=== PATIENT | male | born 1950 | race African-American/Black ===

== ENCOUNTER → 2022-03-29 | Day surgery (SDC) | payer MEDICAID ==
[~2022-03-29] VITALS: Ht 170.1 cm; Wt 58.3 kg
[~2022-03-29] MED LIST: CEREFOLIN CAPL1 EACH PO; LASIX20 MG PO; LIDOCAINE PAIN1 EACH T; LIPITOR10 MG PO; MOBIC15 MG PO; MOVE FREE ULTR1 EAC2 PO; MUCINEX ER600 MG PO; NATURE'S BLEND F1 MG PO; NORVASC5 MG PO; PEPCID20 MG PO; PERCOCET 10-321 EACH PO; VITAMIN B150 MG PO; ZOFRAN4 MG PO; [UNRECOGNIZED DRUG - REMARK] PO
[2022-03-29 07:24] VITALS: BP 139/85
[2022-03-29 08:24] VITALS: BP 111/64
[2022-03-29 08:39] VITALS: BP 143/85
[2022-03-29 08:54] VITALS: BP 147/103
== END | disposition home or self-care (01) ==
LOC: SDC 03-25 14:00
PROVIDERS: ATTEND Surgery
DX: Z12.11 Encounter for screening for malignant neoplasm of colon (principal); D12.0 Benign neoplasm of cecum; D12.2 Benign neoplasm of ascending colon; K57.30 Diverticulosis of large intestine without perforation or abscess without bleeding; I10 Essential (primary) hypertension; J44.9 Chronic obstructive pulmonary disease, unspecified; K21.9 Gastro-esophageal reflux disease without esophagitis; Z79.899 Other long term (current) drug therapy

== ENCOUNTER → 2022-09-03 | Outpatient (CLI) | payer MEDICAID | END | disposition home or self-care (01) | LOC: CT 14:00 | PROVIDERS: ATTEND Orthopaedic Surgery | DX: S72.21XA Displaced subtrochanteric fracture of right femur, initial encounter for closed fracture (principal); S42.201A Unspecified fracture of upper end of right humerus, initial encounter for closed fracture; X58.XXXA Exposure to other specified factors, initial encounter; Y93.89 Activity, other specified; Y92.89 Other specified places as the place of occurrence of the external cause; Y99.8 Other external cause status ==

== ENCOUNTER → 2022-09-25 | Day surgery (SDC) | payer MEDICAID ==
[~2022-09-25] VITALS: Ht 182.8 cm; Wt 69.9 kg
[2022-09-25 10:33] VITALS: BP 148/72
[2022-09-25 11:50] VITALS: BP 151/80
[2022-09-25 12:05] VITALS: BP 142/69
[2022-09-25 12:16] VITALS: BP 141/72
== END | disposition home or self-care (01) ==
LOC: SDC 09-20 12:30
PROVIDERS: ATTEND Ophthalmology
DX: H25.811 Combined forms of age-related cataract, right eye (principal); I10 Essential (primary) hypertension; J44.9 Chronic obstructive pulmonary disease, unspecified; K21.9 Gastro-esophageal reflux disease without esophagitis; Z79.899 Other long term (current) drug therapy

== ENCOUNTER 2023-06-19 10:08 | Emergency (ER) | payer MEDICAID ==
[~2023-06-19] VITALS: Ht 165.1 cm; Wt 67.1 kg
[~2023-06-19 10:08] MED LIST changes: +LATANOPROST2.5 ML OP; +OXYCODONE HCL20 M1 PO; +PROVENTIL HFA6.7 GM INH; +VITAMIN D350 MCG PO; +ZITHROMAX TRI-500 M1 PO
== END 2023-06-19 11:14 | disposition home or self-care (01) ==
LOC: ED 10:08
DX: S01.01XD Laceration without foreign body of scalp, subsequent encounter (principal); F17.200 Nicotine dependence, unspecified, uncomplicated; Z48.02 Encounter for removal of sutures; Z79.2 Long term (current) use of antibiotics; Z79.899 Other long term (current) drug therapy; Z98.890 Other specified postprocedural states; W19.XXXD Unspecified fall, subsequent encounter

== ENCOUNTER → 2023-08-27 | Outpatient (CLI) | payer MEDICAID | END | disposition home or self-care (01) | LOC: ORTHO 02:37 | PROVIDERS: ATTEND Orthopaedic Surgery | DX: M25.511 Pain in right shoulder (principal) ==

== ENCOUNTER 2024-01-29 10:02 | Inpatient (IN) | payer MEDICAID ==
[~2024-01-29] VITALS: Ht 175.2 cm; Wt 65.1 kg
[~2024-01-29 10:02] MED LIST changes: +CARVEDILOL6.25 MG PO; +CIPROFLOXACIN H10 ML OPH
[2024-01-29 10:13] VITALS: BP 114/68
[2024-01-29] MEDS ORDERED: SODIUM CHLORIDE 0.9% 1,000 ML IV SCH (10:30)
[2024-01-29 10:59] LABS: ACT PARTIAL THROMBO TIME 27.1 SECONDS (20.0-32.1)
[2024-01-29 11:17] LABS: ALKALINE PHOSPHATASE 140 U/L (46-116); BUN 12 mg/dl (9-23); CHLORIDE 100 mmol/L (98-107); CPK 34 U/L (34-171); LIPASE 32 U/L (12-53); SGPT/ALT 53 U/L (5-49); TOTAL PROTEIN 6.9 gm/dL (6.0-8.0)
[2024-01-29 11:27] LABS: BASO % 0.6 % (0.0-1.0); HEMATOCRIT 39.6 % (42.0-52.0); LYMPH # 0.6 10*3/uL (1.3-4.4); LYMPH % 12.2 % (27.0-41.0); MEAN CELL VOLUME 97.5 fl (80.0-94.0); MEAN CORPUSCULAR HGB 33.5 pg (27.0-31.0); MEAN CORPUSCULAR HGB CONC 34.3 g/dl (33.0-37.0); MEAN PLATELET VOLUME 8.5 fl (9.6-12.3); MONO # 0.6 10*3/uL (0.1-1.0); MONO % 12.4 % (3.0-9.0); NEUT # 3.7 10*3/uL (2.3-7.9); NEUT % 74.6 % (47.0-73.0); PLATELET COUNT AUTOMATED 217 10*3/uL (130-400); RED BLOOD COUNT 4.06 10*6/uL (4.50-5.90); RED CELL DISTRI WIDTH 12.5 % (0-14.5)
[2024-01-29] MEDS ORDERED: POTASSIUM CHLORIDE 20 MEQ TAB PO ONE (12:05)
[2024-01-29] MEDS ORDERED: Ceftriaxone Sodium 1 GM/10 ML SYR IV ONE (12:10)
[2024-01-29] MEDS ORDERED: Ondansetron Hydrochloride 4 MG/2 ML VIAL IV ONE (12:30)
[2024-01-29] MEDS ORDERED: POTASSIUM CHLORIDE IN WATER 100 ML IV SCH (14:00)
[2024-01-29] MEDS ORDERED: Thiamine 200 MG/2 ML VIAL IV ONE (14:05)
[2024-01-29] MEDS ORDERED: DIAZEPAM 10 MG/2 ML SYR IV ONE ×2 (14:05→17:25)
[2024-01-29] MEDS ORDERED: IOHEXOL 9 MG/ML (IODINE) ORAL SOLUTION PO ONE (14:25)
[2024-01-29 15:06] VITALS: BP 165/102
[2024-01-29] MEDS ORDERED: Promethazine Hydrochloride 25 MG/ML VIAL IM ONE (15:35)
[2024-01-29] MEDS ORDERED: IOHEXOL 300 MG/ML 100 ML VIAL IV ONE (16:00)
[2024-01-29] MEDS ORDERED: MULTIVITAMIN CONCENTRATE (IV) 10 ML,Thiamine 100 MG,FOLIC ACID 1 MG in SODIUM CHLORIDE ... IV ONE (17:10)
[2024-01-29] MEDS ORDERED: MORPHINE Sulfate 2 MG/ML SYR IV PRN (17:25)
[2024-01-29] MEDS ORDERED: Ondansetron Hydrochloride 4 MG/2 ML VIAL IV PRN (17:25)
[2024-01-29] MEDS ORDERED: ACETAMINOPHEN 650 MG SUPP R PRN (17:25)
[2024-01-29] MEDS ORDERED: Dicyclomine Hydrochloride 20 MG TAB PO PRN (17:30)
[2024-01-29] MEDS ORDERED: METHOCARBAMOL 750 MG TAB PO PRN (17:30)
[2024-01-29] MEDS ORDERED: SODIUM CHLORIDE 0.9% 1,000 ML IV ONE (17:30)
[2024-01-29] MEDS ORDERED: hydrOXYzine 50 MG CAP PO PRN (17:30)
[2024-01-29] MEDS ORDERED: MORPHINE Sulfate 2 MG/ML SYR IV ONE (17:30)
[2024-01-29 17:38] LABS: BILIRUBIN Negative (Negative); BLOOD 3+ (Negative); CLARITY Clear (Clear); COLOR Orange (Yellow); GLUCOSE Negative (Negative); KETONE Negative (Negative); LEUKO ESTERASE Negative (Negative); NITRITE Negative (Negative); PH 5.5 (4.5-8.0); SPECIFIC GRAVITY >= 1.030 (1.001-1.030)
[2024-01-29 17:58] LABS: BACTERIA 1+; FINE GRANULAR CAST 0-2; MUCOUS 1+; RBC 41-50 rbc/hpf (0-2); WBC 0-2 wbc/hpf (0-5)
[2024-01-29] MEDS ORDERED: Piperacillin Sodium/Tazobact 50 ML IV SCH (18:00)
[2024-01-29] MEDS ORDERED: DIAZEPAM 10 MG/2 ML SYR IV SCH (18:00)
[2024-01-29 18:10] VITALS: BP 167/120
[2024-01-29 19:15] VITALS: BP 167/100
[2024-01-29] MEDS ORDERED: Labetalol Hydrochloride 20 MG/4 ML SYR IV ONE (19:35)
[2024-01-29 20:15] VITALS: BP 198/107
[2024-01-29] MEDS ORDERED: POTASSIUM CHLORIDE IN WATER 100 ML IV ONE (20:58)
[2024-01-30] VITALS: BP 178/93
[2024-01-30 04:00] VITALS: BP 163/78
[2024-01-30] MEDS ORDERED: Pantoprazole Sodium 40 MG VIAL IV SCH (06:00)
[2024-01-30 06:48] LABS: BASO % 0.5 % (0.0-1.0); EOS # 0.1 10*3/uL (0.0-0.4); EOS % 1.9 % (1.0-4.0); HEMATOCRIT 37.7 % (42.0-52.0); LYMPH # 0.5 10*3/uL (1.3-4.4); MEAN CELL VOLUME 99.7 fl (80.0-94.0); MEAN CORPUSCULAR HGB 34.1 pg (27.0-31.0); MEAN CORPUSCULAR HGB CONC 34.2 g/dl (33.0-37.0); MEAN PLATELET VOLUME 8.9 fl (9.6-12.3); MONO # 0.5 10*3/uL (0.1-1.0); MONO % 10.6 % (3.0-9.0); NEUT # 3.2 10*3/uL (2.3-7.9); PLATELET COUNT AUTOMATED 152 10*3/uL (130-400); RED BLOOD COUNT 3.78 10*6/uL (4.50-5.90); RED CELL DISTRI WIDTH 12.7 % (0-14.5); WHITE BLOOD COUNT 4.2 10*3/uL (4.8-10.8)
[2024-01-30 07:14] LABS: ALKALINE PHOSPHATASE 124 U/L (46-116); BUN 6 mg/dl (9-23); CHLORIDE 108 mmol/L (98-107); POTASSIUM 3.1 mmol/L (3.4-5.1); SGPT/ALT 37 U/L (5-49)
[2024-01-30] MEDS ORDERED: SODIUM CHLORIDE 0.9% 1,000 ML IV ONE (08:20)
[2024-01-30] MEDS ORDERED: POTASSIUM CHLORIDE IN WATER 100 ML IV SCH (09:00)
[2024-01-30 09:30] VITALS: BP 180/70
[2024-01-30] MEDS ORDERED: Thiamine 200 MG/2 ML VIAL IV SCH (10:00)
[2024-01-30] MEDS ORDERED: Enoxaparin Sodium 40 MG/0.4 ML SYR SC SCH (10:00)
[2024-01-30] MEDS ORDERED: CARVEDILOL 6.25 MG TAB PO SCH (11:15)
[2024-01-30 12:00] VITALS: BP 150/85
[2024-01-30 16:17] VITALS: BP 145/85
[2024-01-30 20:00] VITALS: BP 169/84
[2024-01-30] MEDS ORDERED: OXYCODONE HCL 20 MG PO SCH (22:00)
[2024-01-30] MEDS ORDERED: METRONIDAZOLE 500 MG TAB PO SCH (22:00)
[2024-01-30] MEDS ORDERED: Ciprofloxacin Hydrochloride 500 MG TAB PO SCH (22:00)
[2024-01-31] VITALS (7 sets, daily range): BP systolic 136–190; BP diastolic 70–100
[2024-01-31 06:42] LABS: BASO % 0.6 % (0.0-1.0); EOS # 0.2 10*3/uL (0.0-0.4); EOS % 6.5 % (1.0-4.0); HEMATOCRIT 35.8 % (42.0-52.0); LYMPH # 0.9 10*3/uL (1.3-4.4); LYMPH % 27.5 % (27.0-41.0); MEAN CELL VOLUME 99.4 fl (80.0-94.0); MEAN CORPUSCULAR HGB 33.9 pg (27.0-31.0); MEAN CORPUSCULAR HGB CONC 34.1 g/dl (33.0-37.0); MEAN PLATELET VOLUME 9.1 fl (9.6-12.3); MONO # 0.4 10*3/uL (0.1-1.0); NEUT # 1.7 10*3/uL (2.3-7.9); NEUT % 52.1 % (47.0-73.0); PLATELET COUNT AUTOMATED 140 10*3/uL (130-400); RED CELL DISTRI WIDTH 12.4 % (0-14.5); WHITE BLOOD COUNT 3.2 10*3/uL (4.8-10.8)
[2024-01-31 07:05] LABS: ALKALINE PHOSPHATASE 114 U/L (46-116); CHLORIDE 103 mmol/L (98-107); POTASSIUM 3.3 mmol/L (3.4-5.1); SGPT/ALT 28 U/L (5-49); TOTAL PROTEIN 5.8 gm/dL (6.0-8.0)
[2024-01-31 07:06] LABS: BUN < 5 mg/dl (9-23)
[2024-01-31] MEDS ORDERED: POTASSIUM CHLORIDE 20 MEQ TAB PO ONE ×2 (07:45→09:45)
[2024-01-31] MEDS ORDERED: Labetalol Hydrochloride 20 MG/4 ML SYR IV ONE (08:05)
[2024-01-31] MEDS ORDERED: CARVEDILOL 12.5 MG TAB PO SCH (22:00)
[2024-02-01 05:02] LABS: ALKALINE PHOSPHATASE 100 U/L (46-116); CHLORIDE 103 mmol/L (98-107); POTASSIUM 3.4 mmol/L (3.4-5.1); SGPT/ALT 23 U/L (5-49); TOTAL PROTEIN 5.8 gm/dL (6.0-8.0)
[2024-02-01 05:05] LABS: BUN < 5 mg/dl (9-23)
[2024-02-01 06:25] LABS: BASO % 0.6 % (0.0-1.0); EOS # 0.2 10*3/uL (0.0-0.4); EOS % 6.5 % (1.0-4.0); LYMPH # 0.8 10*3/uL (1.3-4.4); LYMPH % 23.8 % (27.0-41.0); MEAN CELL VOLUME 101.4 fl (80.0-94.0); MEAN CORPUSCULAR HGB CONC 33.5 g/dl (33.0-37.0); MEAN PLATELET VOLUME 9.2 fl (9.6-12.3); MONO # 0.5 10*3/uL (0.1-1.0); MONO % 14.7 % (3.0-9.0); NEUT # 1.9 10*3/uL (2.3-7.9); NEUT % 54.1 % (47.0-73.0); PLATELET COUNT AUTOMATED 140 10*3/uL (130-400); RED BLOOD COUNT 3.65 10*6/uL (4.50-5.90); RED CELL DISTRI WIDTH 12.7 % (0-14.5); WHITE BLOOD COUNT 3.5 10*3/uL (4.8-10.8)
[2024-02-01 08:00] VITALS: BP 122/50
[2024-02-01] MEDS ORDERED: SODIUM CHLORIDE 0.9% 1,000 ML IV SCH (09:55)
[2024-02-01] MEDS ORDERED: amLODIPine besylate 5 MG TAB PO SCH (10:00)
[2024-02-01] MEDS ORDERED: Piperacillin Sodium/Tazobact 50 ML IV SCH (10:02)
[2024-02-01 12:00] VITALS: BP 120/61
[2024-02-01 16:00] VITALS: BP 140/65
[2024-02-01] MEDS ORDERED: ACETAMINOPHEN 325 MG TAB PO PRN (17:25)
[2024-02-01 20:00] VITALS: BP 153/60
[2024-02-02] VITALS: BP 126/68
[2024-02-02] MEDS ORDERED: AMLODIPINE BESYL5 MG PO (01:30)
[2024-02-02] MEDS ORDERED: FAMOTIDINE20 M1 PO (01:30)
[2024-02-02 04:03] LABS: BILIRUBIN Negative (Negative); BLOOD 2+ (Negative); CLARITY Clear (Clear); COLOR Yellow (Yellow); GLUCOSE Negative (Negative); KETONE Negative (Negative); LEUKO ESTERASE 1+ (Negative); NITRITE Negative (Negative); UROBILINOGEN 0.2 E.U./dl (0.0-1.0)
[2024-02-02 04:09] LABS: RBC 41-50 rbc/hpf (0-2)
[2024-02-02 06:18] LABS: BASO % 0.7 % (0.0-1.0); EOS # 0.2 10*3/uL (0.0-0.4); EOS % 6.1 % (1.0-4.0); HEMATOCRIT 34.2 % (42.0-52.0); LYMPH # 0.7 10*3/uL (1.3-4.4); LYMPH % 24.5 % (27.0-41.0); MEAN CORPUSCULAR HGB 33.1 pg (27.0-31.0); MEAN CORPUSCULAR HGB CONC 32.2 g/dl (33.0-37.0); MEAN PLATELET VOLUME 9.3 fl (9.6-12.3); MONO # 0.5 10*3/uL (0.1-1.0); MONO % 16.9 % (3.0-9.0); NEUT # 1.4 10*3/uL (2.3-7.9); NEUT % 51.4 % (47.0-73.0); PLATELET COUNT AUTOMATED 156 10*3/uL (130-400); RED BLOOD COUNT 3.32 10*6/uL (4.50-5.90); RED CELL DISTRI WIDTH 12.9 % (0-14.5); WHITE BLOOD COUNT 2.8 10*3/uL (4.8-10.8)
[2024-02-02 06:41] LABS: CHLORIDE 108 mmol/L (98-107); POTASSIUM 3.2 mmol/L (3.4-5.1)
[2024-02-02 06:43] LABS: BUN < 5 mg/dl (9-23)
[2024-02-02] MEDS ORDERED: POTASSIUM CHLORIDE 20 MEQ TAB PO ONE (07:50)
[2024-02-02 08:00] VITALS: BP 173/79
[2024-02-02] MEDS ORDERED: FOLIC ACID 50 MG/10 ML VIAL IV SCH (10:00)
[2024-02-02] MEDS ORDERED: amLODIPine besylate 5 MG TAB PO SCH (10:00)
[2024-02-02] MEDS ORDERED: FOLIC ACID 0.4 MG TAB PO SCH (10:00)
[2024-02-02] MEDS ORDERED: MULTIVITAMIN 1 TAB TAB PO SCH (10:00)
[2024-02-02 12:00] VITALS: BP 104/60
[2024-02-02] MEDS ORDERED: Ciprofloxacin Hydrochloride 0.3% OPHTHLAMIC BOTTLE OPH SCH (12:00)
[2024-02-02 16:00] VITALS: BP 120/61
[2024-02-02 20:00] VITALS: BP 147/68
[2024-02-03] VITALS: BP 150/72; BP 156/81
[2024-02-03 06:26] LABS: BASO % 0.3 % (0.0-1.0); EOS # 0.2 10*3/uL (0.0-0.4); EOS % 4.6 % (1.0-4.0); HEMATOCRIT 33.3 % (42.0-52.0); LYMPH # 0.8 10*3/uL (1.3-4.4); LYMPH % 24.9 % (27.0-41.0); MEAN CELL VOLUME 103.4 fl (80.0-94.0); MEAN CORPUSCULAR HGB 33.9 pg (27.0-31.0); MEAN CORPUSCULAR HGB CONC 32.7 g/dl (33.0-37.0); MEAN PLATELET VOLUME 8.9 fl (9.6-12.3); MONO # 0.6 10*3/uL (0.1-1.0); MONO % 18.2 % (3.0-9.0); NEUT # 1.7 10*3/uL (2.3-7.9); NEUT % 51.7 % (47.0-73.0); PLATELET COUNT AUTOMATED 179 10*3/uL (130-400); RED BLOOD COUNT 3.22 10*6/uL (4.50-5.90); RED CELL DISTRI WIDTH 13.1 % (0-14.5); WHITE BLOOD COUNT 3.3 10*3/uL (4.8-10.8)
[2024-02-03 06:46] LABS: ALKALINE PHOSPHATASE 78 U/L (46-116); CHLORIDE 107 mmol/L (98-107); POTASSIUM 3.3 mmol/L (3.4-5.1); SGPT/ALT 14 U/L (5-49); TOTAL PROTEIN 5.7 gm/dL (6.0-8.0)
[2024-02-03 06:47] LABS: BUN < 5 mg/dl (9-23)
[2024-02-03 08:00] VITALS: BP 150/82
[2024-02-03] MEDS ORDERED: POTASSIUM CHLORIDE 20 MEQ TAB PO ONE (08:25)
[2024-02-03 12:00] VITALS: BP 133/70
== END 2024-02-03 13:50 | disposition home health service (06) | DRG 720 ==
LOC: ED 10:02 → EDHOLD 17:10 → 5E 17:10
PROVIDERS: Family Medicine; Internal Medicine; Nurse Practitioner Family; Student in an Organized Health Care Education/Training Program; ADMIT Internal Medicine; ATTEND Internal Medicine
DX: A41.9 Sepsis, unspecified organism (principal); K56.7 Ileus, unspecified; K80.70 Calculus of gallbladder and bile duct without cholecystitis without obstruction; E87.20 Acidosis, unspecified; K52.9 Noninfective gastroenteritis and colitis, unspecified; N39.0 Urinary tract infection, site not specified; D53.9 Nutritional anemia, unspecified; K21.9 Gastro-esophageal reflux disease without esophagitis; R65.20 Severe sepsis without septic shock; G89.29 Other chronic pain; J44.9 Chronic obstructive pulmonary disease, unspecified; I10 Essential (primary) hypertension; E87.6 Hypokalemia; R74.01 Elevation of levels of liver transaminase levels; E80.6 Other disorders of bilirubin metabolism; E78.5 Hyperlipidemia, unspecified; F17.210 Nicotine dependence, cigarettes, uncomplicated; Z98.41 Cataract extraction status, right eye; Z79.899 Other long term (current) drug therapy; Z79.01 Long term (current) use of anticoagulants; Z79.2 Long term (current) use of antibiotics; Z82.0 Family history of epilepsy and other diseases of the nervous system

== ENCOUNTER 2024-04-02 20:34 | Emergency (ER) | payer MEDICAID ==
[~2024-04-02] VITALS: Wt 66.7 kg
[~2024-04-02 20:34] MED LIST changes: +AMLODIPINE BESYL5 MG PO; +FAMOTIDINE20 M1 PO; +LEVETIRACETAM500 MG PO; +NORVASC10 MG PO; +VITAMIN D325 MC1 PO
[2024-04-03] MEDS ORDERED: LATANOPROST2.5 ML OP (02:06)
[2024-04-03] MEDS ORDERED: Ondansetron Hydrochloride 4 MG TAB SL ONE (02:25)
[2024-04-03] MEDS ORDERED: Acetaminophen/Hydrocodone 5 MG/325 MG TABLET PO ONE (02:25)
== END 2024-04-03 02:41 | disposition home or self-care (01) ==
LOC: ED 20:34
DX: G89.29 Other chronic pain (principal); M25.511 Pain in right shoulder; M79.604 Pain in right leg; I10 Essential (primary) hypertension; J44.9 Chronic obstructive pulmonary disease, unspecified; K21.9 Gastro-esophageal reflux disease without esophagitis; E78.5 Hyperlipidemia, unspecified; F10.129 Alcohol abuse with intoxication, unspecified; F17.200 Nicotine dependence, unspecified, uncomplicated; Z98.890 Other specified postprocedural states; Y90.8 Blood alcohol level of 240 mg/100 ml or more

== ENCOUNTER 2024-05-02 17:37 | Inpatient (IN) | payer MEDICAID ==
[~2024-05-02] VITALS: Ht 162.5 cm; Wt 63.0 kg
[2024-05-02 18:02] VITALS: BP 123/83
[2024-05-02 18:25] LABS: BASO % 0.3 % (0.0-1.0); EOS % 0.2 % (1.0-4.0); HEMATOCRIT 38.4 % (42.0-52.0); LYMPH # 0.9 10*3/uL (1.3-4.4); LYMPH % 10.1 % (27.0-41.0); MEAN CORPUSCULAR HGB 34.5 pg (27.0-31.0); MEAN CORPUSCULAR HGB CONC 34.9 g/dl (33.0-37.0); MEAN PLATELET VOLUME 8.9 fl (9.6-12.3); MONO # 0.7 10*3/uL (0.1-1.0); MONO % 7.4 % (3.0-9.0); NEUT # 7.6 10*3/uL (2.3-7.9); NEUT % 81.7 % (47.0-73.0); PLATELET COUNT AUTOMATED 226 10*3/uL (130-400); RED BLOOD COUNT 3.88 10*6/uL (4.50-5.90); RED CELL DISTRI WIDTH 15.1 % (0-14.5); WHITE BLOOD COUNT 9.3 10*3/uL (4.8-10.8)
[2024-05-02 18:36] LABS: ACT PARTIAL THROMBO TIME 27.1 SECONDS (20.0-32.1)
[2024-05-02 18:43] LABS: ALKALINE PHOSPHATASE 145 U/L (46-116); CHLORIDE 99 mmol/L (98-107); CPK 29 U/L (34-171); ETHYL ALCOHOL 160.9 mg/dl (<3); POTASSIUM 2.9 mmol/L (3.4-5.1); SGPT/ALT 36 U/L (5-49); TOTAL PROTEIN 6.5 gm/dL (6.0-8.0)
[2024-05-02] MEDS ORDERED: Lactated Ringer's Solution 1,000 ML IV SCH (18:45)
[2024-05-02] MEDS ORDERED: Thiamine 200 MG/2 ML VIAL IV ONE (18:45)
[2024-05-02 18:47] LABS: BUN < 5 mg/dl (9-23)
[2024-05-02] MEDS ORDERED: POTASSIUM CHLORIDE 20 MEQ TAB PO ONE (18:55)
[2024-05-02] MEDS ORDERED: MAGNESIUM OXIDE 400 MG TAB PO ONE (19:00)
[2024-05-02] MEDS ORDERED: POTASSIUM CHLORIDE IN WATER 100 ML IV ONE (19:00)
[2024-05-02] MEDS ORDERED: IBUPROFEN 400 MG TAB PO ONE (19:55)
[2024-05-02 22:29] LABS: BILIRUBIN Negative (Negative); BLOOD Negative (Negative); CLARITY Clear (Clear); COLOR Yellow (Yellow); GLUCOSE Negative (Negative); KETONE Trace (Negative); LEUKO ESTERASE Trace (Negative); NITRITE Negative (Negative); PH 5.5 (4.5-8.0); SPECIFIC GRAVITY 1.015 (1.001-1.030)
[2024-05-02 22:30] VITALS: BP 123/83
[2024-05-02 22:36] LABS: BACTERIA 1+; MUCOUS 1+; RBC 0-2 rbc/hpf (0-2); WBC 21-30 wbc/hpf (0-5)
[2024-05-03 00:32] VITALS: BP 155/99
[2024-05-03 00:52] LABS: BUN 5 mg/dl (9-23); CHLORIDE 102 mmol/L (98-107); ETHYL ALCOHOL 13.8 mg/dl (<3); POTASSIUM 3.5 mmol/L (3.4-5.1)
[2024-05-03] MEDS ORDERED: Ondansetron Hydrochloride 4 MG/2 ML VIAL IV ONE (01:15)
[2024-05-03] MEDS ORDERED: DIAZEPAM 10 MG/2 ML SYR IV ONE (01:15)
[2024-05-03] MEDS ORDERED: MORPHINE Sulfate 2 MG/ML SYR IV PRN (01:45)
[2024-05-03] MEDS ORDERED: Magnesium Hydroxide 30 ML UDC PO PRN (01:45)
[2024-05-03] MEDS ORDERED: ACETAMINOPHEN 325 MG TAB PO PRN (01:45)
[2024-05-03] MEDS ORDERED: ACETAMINOPHEN 650 MG SUPP R PRN (01:45)
[2024-05-03] MEDS ORDERED: TEMAZEPAM 15 MG CAP PO PRN (01:45)
[2024-05-03] MEDS ORDERED: Acetaminophen/Hydrocodone 5 MG/325 MG TABLET PO PRN (01:45)
[2024-05-03] MEDS ORDERED: BISACODYL 10 MG SUPP R PRN (01:45)
[2024-05-03] MEDS ORDERED: BISACODYL 5 MG TAB PO PRN (01:45)
[2024-05-03] MEDS ORDERED: METHOCARBAMOL 750 MG TAB PO PRN (01:50)
[2024-05-03] MEDS ORDERED: Nicotine 21 MG PATCH T PRN (01:50)
[2024-05-03] MEDS ORDERED: SODIUM CHLORIDE 0.9% 1,000 ML IV ONE ×3 (02:15→05:35)
[2024-05-03 03:13] LABS: BASO % 0.3 % (0.0-1.0); EOS # 0.1 10*3/uL (0.0-0.4); EOS % 0.8 % (1.0-4.0); HEMATOCRIT 38.8 % (42.0-52.0); LYMPH # 0.7 10*3/uL (1.3-4.4); LYMPH % 12.2 % (27.0-41.0); MEAN CELL VOLUME 98.7 fl (80.0-94.0); MEAN CORPUSCULAR HGB 34.1 pg (27.0-31.0); MEAN CORPUSCULAR HGB CONC 34.5 g/dl (33.0-37.0); MEAN PLATELET VOLUME 8.5 fl (9.6-12.3); MONO # 0.6 10*3/uL (0.1-1.0); MONO % 9.4 % (3.0-9.0); NEUT # 4.7 10*3/uL (2.3-7.9); PLATELET COUNT AUTOMATED 210 10*3/uL (130-400); RED BLOOD COUNT 3.93 10*6/uL (4.50-5.90); RED CELL DISTRI WIDTH 15.1 % (0-14.5); WHITE BLOOD COUNT 6.1 10*3/uL (4.8-10.8)
[2024-05-03 03:33] LABS: BUN 5 mg/dl (9-23); CHLORIDE 103 mmol/L (98-107); POTASSIUM 3.9 mmol/L (3.4-5.1)
[2024-05-03] MEDS ORDERED: LEVETIRACETAM IN NACL (ISO-OS) 100 ML IV ONE (03:35)
[2024-05-03] MEDS ORDERED: Piperacillin Sodium/Tazobact 50 ML IV SCH (03:35)
[2024-05-03] MEDS ORDERED: LORazepam 1 MG TAB PO SCH (04:00)
[2024-05-03 04:58] VITALS: BP 152/104
[2024-05-03] MEDS ORDERED: amLODIPine besylate 5 MG TAB PO SCH (07:25)
[2024-05-03] MEDS ORDERED: Phosphorus/Potassium 1.45 GM PACKET PO SCH (08:00)
[2024-05-03] MEDS ORDERED: methylPREDNISolone sod succ 40 MG VIAL IV SCH (09:15)
[2024-05-03 09:30] VITALS: BP 151/91
[2024-05-03] MEDS ORDERED: FOLIC ACID 1 MG TAB PO SCH (10:00)
[2024-05-03] MEDS ORDERED: Enoxaparin Sodium 40 MG/0.4 ML SYR SC SCH (10:00)
[2024-05-03] MEDS ORDERED: MULTIVITAMIN 1 TAB TAB PO SCH (10:00)
[2024-05-03] MEDS ORDERED: AZITHROMYCIN 250 ML IV SCH (10:00)
[2024-05-03] MEDS ORDERED: Thiamine 100 MG TAB PO SCH (10:00)
[2024-05-03] MEDS ORDERED: LEVETIRACETAM 500 MG TAB PO SCH (10:00)
[2024-05-03 12:15] VITALS: BP 171/92
[2024-05-03 16:43] VITALS: BP 170/98
[2024-05-03 21:15] VITALS: BP 137/73
[2024-05-04] MEDS ORDERED: LORazepam 1 MG TAB PO SCH
[2024-05-04 02:20] VITALS: BP 133/79
[2024-05-04 06:55] LABS: MEAN CELL VOLUME 101.1 fl (80.0-94.0); MEAN CORPUSCULAR HGB 34.2 pg (27.0-31.0); MEAN CORPUSCULAR HGB CONC 33.8 g/dl (33.0-37.0); MEAN PLATELET VOLUME 9.2 fl (9.6-12.3); PLATELET COUNT AUTOMATED 228 10*3/uL (130-400); RED BLOOD COUNT 3.66 10*6/uL (4.50-5.90); RED CELL DISTRI WIDTH 14.5 % (0-14.5); WHITE BLOOD COUNT 6.7 10*3/uL (4.8-10.8)
[2024-05-04 06:56] LABS: MANUAL DIFF REFLEX YES
[2024-05-04 07:08] LABS: BUN < 5 mg/dl (9-23); CHLORIDE 104 mmol/L (98-107); POTASSIUM 3.6 mmol/L (3.4-5.1)
[2024-05-04 07:26] LABS: TOTAL CELLS COUNTED 100 #CELLS
[2024-05-04 07:27] LABS: PLATELET SUFFICIENCY NORMAL (NORMAL)
[2024-05-04 08:56] VITALS: BP 158/95
[2024-05-04] MEDS ORDERED: Albuterol Sulf/Ipratropium 3 ML VIAL NEB PRN (09:10)
[2024-05-04 09:52] LABS: URINE AMPHETAMINES Negative (1000ng/ml); URINE BARBITURATES Negative (200ng/ml); URINE BENZODIAZEPINES Negative (200ng/ml); URINE CANNABINOIDS (THC) Negative (50ng/ml); URINE COCAINE Negative (300ng/ml); URINE METHADONE Negative (300ng/ml); URINE OPIATES Negative (300ng/ml); URINE PHENCYCLIDINE Negative (25ng/ml)
[2024-05-04 12:15] VITALS: BP 159/89
[2024-05-04 15:57] VITALS: BP 165/93
[2024-05-05] MEDS ORDERED: LORazepam 1 MG TAB PO PRN
[2024-05-05 03:16] VITALS: BP 172/82
[2024-05-05 06:35] LABS: BASO % 0.1 % (0.0-1.0); EOS % 0.1 % (1.0-4.0); HEMATOCRIT 34.4 % (42.0-52.0); LYMPH # 1.1 10*3/uL (1.3-4.4); LYMPH % 15.6 % (27.0-41.0); MEAN CELL VOLUME 101.8 fl (80.0-94.0); MEAN CORPUSCULAR HGB 34.6 pg (27.0-31.0); MONO # 0.7 10*3/uL (0.1-1.0); MONO % 10.2 % (3.0-9.0); NEUT # 5.1 10*3/uL (2.3-7.9); NEUT % 73.9 % (47.0-73.0); PLATELET COUNT AUTOMATED 199 10*3/uL (130-400); RED BLOOD COUNT 3.38 10*6/uL (4.50-5.90); WHITE BLOOD COUNT 6.9 10*3/uL (4.8-10.8)
[2024-05-05 07:02] LABS: CHLORIDE 105 mmol/L (98-107); POTASSIUM 3.3 mmol/L (3.4-5.1)
[2024-05-05 07:09] LABS: BUN < 5 mg/dl (9-23)
[2024-05-05] MEDS ORDERED: POTASSIUM CHLORIDE 20 MEQ TAB PO ONE (07:25)
[2024-05-05 08:49] VITALS: BP 171/99
[2024-05-05 09:35] VITALS: BP 138/76
[2024-05-05] MEDS ORDERED: LISINOPRIL 10 MG TAB PO SCH (10:00)
[2024-05-05] MEDS ORDERED: LISINOPRIL 5 MG TAB PO SCH (10:00)
[2024-05-05] MEDS ORDERED: ZITHROMAX250 MG PO (13:14)
[2024-05-05] MEDS ORDERED: PREDNISONE10 MG PO (13:14)
[2024-05-05] MEDS ORDERED: TAB-A-VITE TA400 MCG PO (13:14)
[2024-05-05 14:41] VITALS: BP 140/70
== END 2024-05-05 18:13 | disposition home or self-care (01) | DRG 720 ==
LOC: ED 17:37 → EDHOLD 05-03 01:20
PROVIDERS: Emergency Medicine; Internal Medicine; Student in an Organized Health Care Education/Training Program; ADMIT Family Medicine; ATTEND Family Medicine
DX: A41.9 Sepsis, unspecified organism (principal); E44.0 Moderate protein-calorie malnutrition; E87.1 Hypo-osmolality and hyponatremia; J44.1 Chronic obstructive pulmonary disease with (acute) exacerbation; E87.20 Acidosis, unspecified; Z68.43 Body mass index [BMI] 50.0-59.9, adult; D53.9 Nutritional anemia, unspecified; E87.6 Hypokalemia; F10.229 Alcohol dependence with intoxication, unspecified; I10 Essential (primary) hypertension; K21.9 Gastro-esophageal reflux disease without esophagitis; E78.5 Hyperlipidemia, unspecified; F17.210 Nicotine dependence, cigarettes, uncomplicated; F10.239 Alcohol dependence with withdrawal, unspecified; R74.01 Elevation of levels of liver transaminase levels; R73.9 Hyperglycemia, unspecified; G89.29 Other chronic pain; M79.604 Pain in right leg; M75.00 Adhesive capsulitis of unspecified shoulder; R65.20 Severe sepsis without septic shock; G40.909 Epilepsy, unspecified, not intractable, without status epilepticus; Z79.01 Long term (current) use of anticoagulants; Z71.6 Tobacco abuse counseling; Z98.42 Cataract extraction status, left eye; Z79.899 Other long term (current) drug therapy; Z79.2 Long term (current) use of antibiotics; Y90.0 Blood alcohol level of less than 20 mg/100 ml

== ENCOUNTER 2024-06-01 09:46 | Emergency (ER) | payer MEDICAID ==
[~2024-06-01] VITALS: Ht 165.1 cm; Wt 67.1 kg
[~2024-06-01 09:46] MED LIST changes: +PREDNISONE10 MG PO; +TAB-A-VITE TA400 MCG PO; +ZITHROMAX250 MG PO
[2024-06-01] MEDS ORDERED: SODIUM CHLORIDE 0.9% 1,000 ML IV ONE (10:10)
[2024-06-01] MEDS ORDERED: Thiamine 200 MG/2 ML VIAL IV ONE (10:10)
[2024-06-01 10:36] LABS: BASO % 0.9 % (0.0-1.0); EOS # 0.1 10*3/uL (0.0-0.4); EOS % 1.5 % (1.0-4.0); HEMATOCRIT 39.8 % (42.0-52.0); LYMPH # 0.7 10*3/uL (1.3-4.4); LYMPH % 21.3 % (27.0-41.0); MEAN CELL VOLUME 96.8 fl (80.0-94.0); MEAN CORPUSCULAR HGB 33.6 pg (27.0-31.0); MEAN CORPUSCULAR HGB CONC 34.7 g/dl (33.0-37.0); MEAN PLATELET VOLUME 8.6 fl (9.6-12.3); MONO # 0.4 10*3/uL (0.1-1.0); MONO % 13.3 % (3.0-9.0); NEUT % 62.7 % (47.0-73.0); PLATELET COUNT AUTOMATED 312 10*3/uL (130-400); RED BLOOD COUNT 4.11 10*6/uL (4.50-5.90); RED CELL DISTRI WIDTH 14.1 % (0-14.5); WHITE BLOOD COUNT 3.2 10*3/uL (4.8-10.8)
[2024-06-01 11:05] LABS: ALKALINE PHOSPHATASE 122 U/L (46-116); BUN 7 mg/dl (9-23); CHLORIDE 102 mmol/L (98-107); ETHYL ALCOHOL 184.7 mg/dl (<3); LIPASE 22 U/L (12-53); SGPT/ALT 28 U/L (5-49); TOTAL PROTEIN 6.6 gm/dL (6.0-8.0)
[2024-06-01 11:25] LABS: BILIRUBIN Negative (Negative); BLOOD Negative (Negative); CLARITY Clear (Clear); COLOR Yellow (Yellow); GLUCOSE Negative (Negative); KETONE Trace (Negative); LEUKO ESTERASE Negative (Negative); NITRITE Negative (Negative); PH 5.5 (4.5-8.0); SPECIFIC GRAVITY 1.025 (1.001-1.030)
[2024-06-01 11:30] LABS: URINE AMPHETAMINES Negative (1000ng/ml); URINE BARBITURATES Negative (200ng/ml); URINE BENZODIAZEPINES Negative (200ng/ml); URINE CANNABINOIDS (THC) Negative (50ng/ml); URINE COCAINE Negative (300ng/ml); URINE METHADONE Negative (300ng/ml); URINE OPIATES Negative (300ng/ml); URINE PHENCYCLIDINE Negative (25ng/ml)
[2024-06-01] MEDS ORDERED: Dicyclomine Hydrochloride 20 MG/10 ML OSYR PO STA (12:29)
[2024-06-01] MEDS ORDERED: Lidocaine Hydrochloride 15 ML UDC PO STA (12:29)
[2024-06-01] MEDS ORDERED: MG-AL HYDROXIDE/SIMETICONE 30 ML UDC PO STA (12:29)
== END 2024-06-01 18:19 | disposition home or self-care (01) ==
LOC: ED 09:46
PROVIDERS: Internal Medicine
DX: F10.10 Alcohol abuse, uncomplicated (principal); F17.200 Nicotine dependence, unspecified, uncomplicated; Z79.899 Other long term (current) drug therapy; Z79.2 Long term (current) use of antibiotics; Z98.890 Other specified postprocedural states; Y90.6 Blood alcohol level of 120-199 mg/100 ml

== ENCOUNTER 2025-02-03 23:06 | Inpatient (IN) | payer MEDICAID ==
[~2025-02-03] VITALS: Ht 165.1 cm; Wt 54.5 kg
[2025-02-03 23:09] VITALS: BP 212/120
[2025-02-03 23:10] VITALS: BP 212/120
[2025-02-03] MEDS ORDERED: Labetalol Hydrochloride 20 MG/4 ML SYR IV ONE (23:30)
[2025-02-03 23:44] LABS: BASO % 0.2 % (0.0-1.0); EOS % 0.4 % (1.0-4.0); HEMATOCRIT 35.7 % (42.0-52.0); MEAN CELL VOLUME 97.5 fl (80.0-94.0); MEAN CORPUSCULAR HGB 33.9 pg (27.0-31.0); MEAN CORPUSCULAR HGB CONC 34.7 g/dl (33.0-37.0); MEAN PLATELET VOLUME 8.6 fl (9.6-12.3); MONO # 0.5 10*3/uL (0.1-1.0); NEUT % 86.5 % (47.0-73.0); PLATELET COUNT AUTOMATED 353 10*3/uL (130-400); RED BLOOD COUNT 3.66 10*6/uL (4.50-5.90); RED CELL DISTRI WIDTH 15.5 % (0-14.5); WHITE BLOOD COUNT 10.4 10*3/uL (4.8-10.8)
[2025-02-03] MEDS ORDERED: Lidocaine Hydrochloride 15 ML UDC PO STA (23:55)
[2025-02-03] MEDS ORDERED: MG-AL HYDROXIDE/SIMETICONE 30 ML UDC PO STA (23:55)
[2025-02-03] MEDS ORDERED: Dicyclomine Hydrochloride 20 MG/10 ML OSYR PO STA (23:55)
[2025-02-04] VITALS (8 sets, daily range): BP systolic 124–215; BP diastolic 51–107
[2025-02-04] MEDS ORDERED: SODIUM CHLORIDE 0.9% 1,000 ML IV ONE ×2 (00:10→05:00)
[2025-02-04 00:11] LABS: ALKALINE PHOSPHATASE 137 U/L (46-116); BUN 7 mg/dl (9-23); CHLORIDE 90 mmol/L (98-107); ETHYL ALCOHOL 160.3 mg/dl (<3); POTASSIUM 3.7 mmol/L (3.4-5.1); SGPT/ALT 21 U/L (5-49); TOTAL PROTEIN 7.4 gm/dL (6.0-8.0)
[2025-02-04] MEDS ORDERED: hydrALAZINE hydrochloride 20 MG/ML VIAL IV ONE (00:20)
[2025-02-04] MEDS ORDERED: Ondansetron Hydrochloride 4 MG/2 ML VIAL IV ONE (01:50)
[2025-02-04] MEDS ORDERED: ACETAMINOPHEN 325 MG TAB PO ONE (01:50)
[2025-02-04] MEDS ORDERED: LEVETIRACETAM IN NACL (ISO-OS) 100 ML IV ONE (03:20)
[2025-02-04] MEDS ORDERED: ASPIRIN ADULT L81 M1 PO (04:47)
[2025-02-04] MEDS ORDERED: DERMACINRX LID1 EACH T (04:48)
[2025-02-04] MEDS ORDERED: Acetaminophen/Hydrocodone 5 MG/325 MG TABLET PO PRN (04:50)
[2025-02-04] MEDS ORDERED: ACETAMINOPHEN 650 MG SUPP R PRN (04:50)
[2025-02-04] MEDS ORDERED: Ondansetron Hydrochloride 4 MG/2 ML VIAL IV PRN (04:50)
[2025-02-04] MEDS ORDERED: Magnesium Hydroxide 30 ML UDC PO PRN (04:50)
[2025-02-04] MEDS ORDERED: BISACODYL 10 MG SUPP R PRN (04:50)
[2025-02-04] MEDS ORDERED: ACETAMINOPHEN 325 MG TAB PO PRN (04:50)
[2025-02-04] MEDS ORDERED: BISACODYL 5 MG TAB PO PRN (04:50)
[2025-02-04] MEDS ORDERED: Water, Sterile 10 ML VIAL IV PRN (04:55)
[2025-02-04] MEDS ORDERED: hydrOXYzine 50 MG CAP PO PRN (04:55)
[2025-02-04] MEDS ORDERED: METHOCARBAMOL 750 MG TAB PO PRN (04:55)
[2025-02-04] MEDS ORDERED: FOLIC ACID 1 MG TAB PO ONE (04:55)
[2025-02-04] MEDS ORDERED: Dicyclomine Hydrochloride 20 MG TAB PO PRN (04:55)
[2025-02-04] MEDS ORDERED: MAGNESIUM SULFATE 100 ML IV ONE (04:55)
[2025-02-04] MEDS ORDERED: APAP325 MG PO (05:05)
[2025-02-04] MEDS ORDERED: VENT7GM INH (05:07)
[2025-02-04] MEDS ORDERED: LATANOPROST 0.005% 2.5 ML BOTTLE OPH SCH ×3 (05:15→22:00)
[2025-02-04] MEDS ORDERED: Albuterol Sulfate 2.5 MG/3 ML VIAL NEB PRN (05:15)
[2025-02-04] MEDS ORDERED: Thiamine 200 MG/2 ML VIAL IV SCH (06:00)
[2025-02-04 06:07] LABS: BASO % 0.1 % (0.0-1.0); EOS % 0.3 % (1.0-4.0); HEMATOCRIT 31.8 % (42.0-52.0); MEAN CELL VOLUME 98.8 fl (80.0-94.0); MEAN CORPUSCULAR HGB 33.5 pg (27.0-31.0); MEAN PLATELET VOLUME 8.9 fl (9.6-12.3); MONO # 0.5 10*3/uL (0.1-1.0); MONO % 6.9 % (3.0-9.0); NEUT # 5.7 10*3/uL (2.3-7.9); NEUT % 83.4 % (47.0-73.0); PLATELET COUNT AUTOMATED 326 10*3/uL (130-400); RED BLOOD COUNT 3.22 10*6/uL (4.50-5.90); RED CELL DISTRI WIDTH 15.5 % (0-14.5); WHITE BLOOD COUNT 6.8 10*3/uL (4.8-10.8)
[2025-02-04 06:34] LABS: ACT PARTIAL THROMBO TIME 28.9 SECONDS (20.0-32.1)
[2025-02-04 06:53] LABS: ALKALINE PHOSPHATASE 110 U/L (46-116); BUN 7 mg/dl (9-23); CHLORIDE 93 mmol/L (98-107); CHOLESTEROL 166 mg/dL (<200); FREE T4 0.72 ng/dl (0.89-1.76); LDL CHOLESTEROL 53 mg/dL (9-159); POTASSIUM 3.7 mmol/L (3.4-5.1); SGPT/ALT 10 U/L (5-49); TOTAL PROTEIN 6.1 gm/dL (6.0-8.0); TRIGLYCERIDES 97 mg/dl (<150)
[2025-02-04] MEDS ORDERED: LORazepam 1 MG TAB PO SCH (08:00)
[2025-02-04 08:48] LABS: BILIRUBIN Negative (Negative); BLOOD Negative (Negative); CLARITY Clear (Clear); COLOR Yellow (Yellow); GLUCOSE Negative (Negative); KETONE 2+ (Negative); LEUKO ESTERASE Negative (Negative); NITRITE Negative (Negative); SPECIFIC GRAVITY 1.025 (1.001-1.030)
[2025-02-04 09:11] LABS: RBC 0-2 rbc/hpf (0-2)
[2025-02-04 09:12] LABS: EPITHELIAL CELLS 0-2
[2025-02-04 09:22] LABS: URINE AMPHETAMINES Negative (1000ng/ml); URINE BARBITURATES Negative (200ng/ml); URINE BENZODIAZEPINES Negative (200ng/ml); URINE CANNABINOIDS (THC) Negative (50ng/ml); URINE COCAINE Negative (300ng/ml); URINE METHADONE Negative (300ng/ml); URINE OPIATES Positive (300ng/ml); URINE PHENCYCLIDINE Negative (25ng/ml)
[2025-02-04] MEDS ORDERED: LEVETIRACETAM 500 MG TAB PO SCH (10:00)
[2025-02-04] MEDS ORDERED: Cholecalciferol 2,000 UNIT TABLET (50 MCG) PO SCH (10:00)
[2025-02-04] MEDS ORDERED: ACETAMINOPHEN 325 MG TAB PO SCH ×2 (10:00→22:00)
[2025-02-04] MEDS ORDERED: LIDOCAINE 1 EA PATCH T SCH (10:00)
[2025-02-04] MEDS ORDERED: OXYCODONE HCL 20 MG PO SCH (10:00)
[2025-02-04] MEDS ORDERED: ASPIRIN, CHEWABLE 81 MG TAB PO SCH (10:00)
[2025-02-04] MEDS ORDERED: OXYCODONE HCL (IR) 10 MG TABLET PO SCH (10:00)
[2025-02-04] MEDS ORDERED: MULTIVITAMIN 1 TAB TAB PO SCH ×2 (10:00)
[2025-02-04] MEDS ORDERED: amLODIPine besylate 5 MG TAB PO SCH (10:00)
[2025-02-04] MEDS ORDERED: Enoxaparin Sodium 40 MG/0.4 ML SYR SC SCH (10:00)
[2025-02-05] VITALS: BP 142/75
[2025-02-05 05:28] LABS: ALKALINE PHOSPHATASE 94 U/L (46-116); BUN 7 mg/dl (9-23); CHLORIDE 98 mmol/L (98-107); SGPT/ALT 10 U/L (5-49); TOTAL PROTEIN 5.8 gm/dL (6.0-8.0)
[2025-02-05 06:51] LABS: BASO % 0.3 % (0.0-1.0); EOS # 0.1 10*3/uL (0.0-0.4); EOS % 1.2 % (1.0-4.0); HEMATOCRIT 29.9 % (42.0-52.0); MEAN CELL VOLUME 100.7 fl (80.0-94.0); MEAN CORPUSCULAR HGB CONC 33.8 g/dl (33.0-37.0); MEAN PLATELET VOLUME 8.8 fl (9.6-12.3); MONO # 0.5 10*3/uL (0.1-1.0); MONO % 7.5 % (3.0-9.0); NEUT # 5.7 10*3/uL (2.3-7.9); NEUT % 83.9 % (47.0-73.0); PLATELET COUNT AUTOMATED 241 10*3/uL (130-400); RED BLOOD COUNT 2.97 10*6/uL (4.50-5.90); RED CELL DISTRI WIDTH 15.9 % (0-14.5); WHITE BLOOD COUNT 6.8 10*3/uL (4.8-10.8)
[2025-02-05 08:00] VITALS: BP 147/75
[2025-02-05] MEDS ORDERED: LORazepam 1 MG TAB PO SCH (08:00)
[2025-02-05] MEDS ORDERED: SODIUM CHLORIDE 0.9% 1,000 ML IV ONE (10:20)
[2025-02-05 12:00] VITALS: BP 149/65
[2025-02-05 16:00] VITALS: BP 146/65
[2025-02-05 20:00] VITALS: BP 169/81
[2025-02-06] VITALS (7 sets, daily range): BP systolic 154–184; BP diastolic 74–90
[2025-02-06] MEDS ORDERED: LORazepam 1 MG TAB PO PRN
[2025-02-06 07:29] LABS: BUN 6 mg/dl (9-23); CHLORIDE 98 mmol/L (98-107); POTASSIUM 4.3 mmol/L (3.4-5.1)
[2025-02-06] MEDS ORDERED: Phosphorus/Potassium 1.45 GM PACKET PO SCH (12:00)
[2025-02-06] MEDS ORDERED: Metoprolol Tartrate 5 MG/5 ML VIAL IV ONE (23:40)
[2025-02-07 03:15] VITALS: BP 174/90
[2025-02-07 06:44] VITALS: BP 167/90
[2025-02-07 08:00] VITALS: BP 198/98
[2025-02-07] MEDS ORDERED: Metoprolol Tartrate 25 MG TAB PO SCH (10:00)
[2025-02-07] MEDS ORDERED: amLODIPine besylate 10 MG TAB PO SCH (10:00)
[2025-02-07 12:00] VITALS: BP 144/68
[2025-02-07 16:00] VITALS: BP 158/52
[2025-02-08] VITALS: BP 160/71
[2025-02-08 08:00] VITALS: BP 180/84
[2025-02-08] MEDS ORDERED: LOPRESSOR25 MG PO (08:36)
[2025-02-08] MEDS ORDERED: AMLODIPINE BESY10 MG PO (08:36)
== END 2025-02-08 09:00 | disposition home health service (06) | DRG 775 ==
LOC: ED 23:06 → 5E 02-04 03:59 → EDHOLD 02-04 03:59 → 5E 02-04 04:29
PROVIDERS: Internal Medicine; Registered Nurse; Student in an Organized Health Care Education/Training Program; ADMIT Internal Medicine; ATTEND Internal Medicine
DX: F10.139 Alcohol abuse with withdrawal, unspecified (principal); I16.1 Hypertensive emergency; E44.0 Moderate protein-calorie malnutrition; E87.20 Acidosis, unspecified; J44.9 Chronic obstructive pulmonary disease, unspecified; D53.9 Nutritional anemia, unspecified; I10 Essential (primary) hypertension; K21.9 Gastro-esophageal reflux disease without esophagitis; E87.1 Hypo-osmolality and hyponatremia; G89.29 Other chronic pain; M25.511 Pain in right shoulder; E78.5 Hyperlipidemia, unspecified; E16.2 Hypoglycemia, unspecified; Z71.6 Tobacco abuse counseling; Z98.42 Cataract extraction status, left eye; Z81.8 Family history of other mental and behavioral disorders; Z91.199 Patient's noncompliance with other medical treatment and regimen due to unspecified reason; Z68.20 Body mass index [BMI] 20.0-20.9, adult

== ENCOUNTER 2025-02-09 19:51 | Emergency (ER) | payer MEDICAID ==
[~2025-02-09] VITALS: Ht 165.1 cm; Wt 54.4 kg
[~2025-02-09 19:51] MED LIST changes: +AMLODIPINE BESY10 MG PO; +APAP325 MG PO; +ASPIRIN ADULT L81 M1 PO; +DERMACINRX LID1 EACH T; +LOPRESSOR25 MG PO; +VENT7GM INH
[2025-02-09] MEDS ORDERED: Thiamine 200 MG/2 ML VIAL IV ONE (20:25)
[2025-02-09] MEDS ORDERED: SODIUM CHLORIDE 0.9% 1,000 ML IV ONE (20:25)
[2025-02-09 20:47] LABS: BASO % 0.6 % (0.0-1.0); EOS # 0.1 10*3/uL (0.0-0.4); EOS % 1.9 % (1.0-4.0); HEMATOCRIT 32.6 % (42.0-52.0); MEAN CELL VOLUME 98.8 fl (80.0-94.0); MEAN CORPUSCULAR HGB 33.3 pg (27.0-31.0); MEAN CORPUSCULAR HGB CONC 33.7 g/dl (33.0-37.0); MEAN PLATELET VOLUME 8.7 fl (9.6-12.3); MONO # 1.1 10*3/uL (0.1-1.0); NEUT # 4.6 10*3/uL (2.3-7.9); NEUT % 66.6 % (47.0-73.0); PLATELET COUNT AUTOMATED 332 10*3/uL (130-400); RED CELL DISTRI WIDTH 15.2 % (0-14.5); WHITE BLOOD COUNT 6.9 10*3/uL (4.8-10.8)
[2025-02-09 21:18] LABS: BUN 14 mg/dl (9-23); CHLORIDE 97 mmol/L (98-107)
[2025-02-10] MEDS ORDERED: Albuterol Sulfate 2.5 MG/3 ML VIAL NEB ONE (03:45)
[2025-02-10] MEDS ORDERED: SODIUM CHLORIDE 0.9% 1,000 ML IV ONE (04:10)
== END 2025-02-10 07:03 | disposition home or self-care (01) ==
LOC: ED 19:51
PROVIDERS: Internal Medicine
DX: I95.1 Orthostatic hypotension (principal); E87.1 Hypo-osmolality and hyponatremia; D53.9 Nutritional anemia, unspecified; F10.90 Alcohol use, unspecified, uncomplicated; I10 Essential (primary) hypertension; J44.9 Chronic obstructive pulmonary disease, unspecified; K21.9 Gastro-esophageal reflux disease without esophagitis; F17.200 Nicotine dependence, unspecified, uncomplicated; Z79.899 Other long term (current) drug therapy; Z98.890 Other specified postprocedural states; Y90.2 Blood alcohol level of 40-59 mg/100 ml

== ENCOUNTER 2025-07-01 14:08 | Inpatient (IN) | payer MEDICAID ==
[~2025-07-01] VITALS: Ht 165.1 cm; Wt 58.3 kg
[2025-07-01 14:14] VITALS: BP 173/95
[2025-07-01] MEDS ORDERED: SODIUM CHLORIDE 0.9% 1,000 ML IV ONE ×2 (14:20→15:25)
[2025-07-01 14:43] LABS: BASO # 0.0 10*3/uL (0.0-0.1); BASO % 0.9 % (0.0-1.0); EOS # 0.1 10*3/uL (0.0-0.4); EOS % 1.3 % (1.0-4.0); MEAN CELL VOLUME 90.2 fl (80.0-94.0); MEAN CORPUSCULAR HGB 30.7 pg (27.0-31.0); MEAN PLATELET VOLUME 9.1 fl (9.6-12.3); MONO # 0.3 10*3/uL (0.1-1.0); MONO % 5.8 % (3.0-9.0); NEUT # 3.0 10*3/uL (2.3-7.9); NEUT % 67.1 % (47.0-73.0); NUCLEATED RED BLOOD CELL 0.0 % (0.0-0.0); NUCLEATED RED BLOOD CELL 0.0 10*3/uL (0.0-0.0); PLATELET COUNT AUTOMATED 276 10*3/uL (130-400); RED CELL DISTRI WIDTH 14.5 % (0-14.5)
[2025-07-01 15:05] LABS: BUN 8 mg/dl (9-23)
[2025-07-01 15:37] LABS: BILIRUBIN Negative (Negative); BLOOD 1+ (Negative); CLARITY Clear (Clear); COLOR Yellow (Yellow); KETONE Trace (Negative); LEUKO ESTERASE Negative (Negative); NITRITE Negative (Negative); PH 6.0 (4.5-8.0); SPECIFIC GRAVITY 1.015 (1.001-1.030); UROBILINOGEN 1.0 E.U./dl (0.0-1.0)
[2025-07-01 15:55] LABS: BACTERIA TRACE; MUCOUS TRACE
[2025-07-01 16:00] VITALS: BP 214/109
[2025-07-01] MEDS ORDERED: Water, Sterile 10 ML VIAL ONE (17:15)
[2025-07-01] MEDS ORDERED: ACETAMINOPHEN 325 MG TAB PO PRN (18:45)
[2025-07-01] MEDS ORDERED: ACETAMINOPHEN 650 MG SUPP R PRN (18:45)
[2025-07-01] MEDS ORDERED: Albuterol Sulf/Ipratropium 3 ML VIAL NEB SCH (19:00)
[2025-07-01] MEDS ORDERED: SODIUM CHLORIDE 0.9% 1,000 ML IV SCH (19:00)
[2025-07-01 19:52] VITALS: BP 218/130
[2025-07-01] MEDS ORDERED: Labetalol Hydrochloride 20 MG/4 ML SYR IV ONE (20:00)
[2025-07-01] MEDS ORDERED: AZITHROMYCIN 250 ML IV SCH (20:00)
[2025-07-01] MEDS ORDERED: MAGNESIUM SULFATE 100 ML IV ONE (20:10)
[2025-07-01] MEDS ORDERED: Water, Sterile 10 ML VIAL IV PRN (20:10)
[2025-07-01] MEDS ORDERED: FOLIC ACID 1 MG TAB PO ONE (20:10)
[2025-07-01] MEDS ORDERED: METHOCARBAMOL 750 MG TAB PO PRN (20:10)
[2025-07-01] MEDS ORDERED: hydrOXYzine 50 MG CAP PO PRN (20:10)
[2025-07-01] MEDS ORDERED: Dicyclomine Hydrochloride 20 MG TAB PO PRN (20:10)
[2025-07-01] MEDS ORDERED: diazePAM 10 MG/2 ML SYR IV PRN (20:10)
[2025-07-01] MEDS ORDERED: SODIUM CHLORIDE 0.9% 100 ML BAG IV ONE (20:15)
[2025-07-01] MEDS ORDERED: IOHEXOL 350 MG/ML 100 ML VIAL IV ONE (20:15)
[2025-07-01 20:56] VITALS: BP 194/117
[2025-07-01 21:45] VITALS: BP 214/109
[2025-07-01] MEDS ORDERED: LEVETIRACETAM 500 MG TAB PO SCH (22:00)
[2025-07-01] MEDS ORDERED: HEPARIN SODIUM 5,000 UNIT/ML VIAL SC SCH (22:00)
[2025-07-01] MEDS ORDERED: LATANOPROST 0.005% 2.5 ML BOTTLE OPH SCH (22:00)
[2025-07-01] MEDS ORDERED: GUAIFENESIN 600 MG TAB ER PO SCH (22:00)
[2025-07-01] MEDS ORDERED: Lactated Ringer's Solution 1,000 ML IV SCH (22:05)
[2025-07-01] MEDS ORDERED: OXYCODONE HCL 20 MG PO SCH (22:32)
[2025-07-01 23:20] LABS: ABG O2 SATURATION 93.7 % (94.0-98.0); ARTERIAL BLOOD GAS PH 7.498 (7.350-7.450); ARTERIAL BLOOD GAS PO2 67.5 mmHg (83.0-108.0)
[2025-07-01] MEDS ORDERED: HEPARIN SODIUM 250 ML IV SCH (23:20)
[2025-07-01 23:21] LABS: ABG BASE EXCESS -2.2 mmol/L (-2.0-3.0)
[2025-07-02] VITALS (8 sets, daily range): BP systolic 140–222; BP diastolic 75–130
[2025-07-02] MEDS ORDERED: LORazepam 1 MG TAB PO SCH
[2025-07-02] MEDS ORDERED: Labetalol Hydrochloride 20 MG/4 ML SYR IV ONE ×2 (00:35→04:15)
[2025-07-02] MEDS ORDERED: Albuterol Sulf/Ipratropium 3 ML VIAL NEB PRN (00:55)
[2025-07-02] MEDS ORDERED: Metoclopramide Hydrochloride 10 MG/2 ML VIAL IV ONE (01:50)
[2025-07-02] MEDS ORDERED: diphenhydrAMINE hydrochloride 50 MG/ML VIAL IV ONE (01:50)
[2025-07-02] MEDS ORDERED: SUCRALFATE 1 GM TAB PO SCH (02:10)
[2025-07-02 02:35] LABS: MEAN CELL VOLUME 90.2 fl (80.0-94.0); MEAN CORPUSCULAR HGB 30.7 pg (27.0-31.0); MEAN PLATELET VOLUME 9.2 fl (9.6-12.3); NUCLEATED RED BLOOD CELL 0.0 % (0.0-0.0); NUCLEATED RED BLOOD CELL 0.0 10*3/uL (0.0-0.0); PLATELET COUNT AUTOMATED 345 10*3/uL (130-400); RED CELL DISTRI WIDTH 14.4 % (0-14.5)
[2025-07-02 02:36] LABS: MANUAL DIFF REFLEX YES
[2025-07-02 03:06] LABS: BASOPHILS 1 % (0-1); PLATELET SUFFICIENCY NORMAL (NORMAL)
[2025-07-02 03:10] LABS: BUN 10 mg/dl (9-23); SGPT/ALT 16 U/L (5-49)
[2025-07-02] MEDS ORDERED: CAPTOPRIL 12.5 MG TAB PO SCH (05:50)
[2025-07-02] MEDS ORDERED: ASPIRIN, CHEWABLE 81 MG TAB PO SCH (10:00)
[2025-07-02] MEDS ORDERED: LIDOCAINE 1 EA PATCH T SCH (10:00)
[2025-07-02] MEDS ORDERED: MULTIVITAMIN 1 TAB TAB PO SCH (10:00)
[2025-07-02] MEDS ORDERED: Cholecalciferol 2,000 UNIT TABLET (50 MCG) PO SCH (10:00)
[2025-07-02 14:41] LABS: URINE AMPHETAMINES Negative (1000ng/ml); URINE BARBITURATES Negative (200ng/ml); URINE BENZODIAZEPINES Negative (200ng/ml); URINE CANNABINOIDS (THC) Negative (50ng/ml); URINE COCAINE Negative (300ng/ml); URINE METHADONE Negative (300ng/ml); URINE OPIATES Positive (300ng/ml); URINE PHENCYCLIDINE Negative (25ng/ml)
[2025-07-03] VITALS: BP 119/54
[2025-07-03] MEDS ORDERED: LORazepam 1 MG TAB PO PRN
[2025-07-03] MEDS ORDERED: LORazepam 1 MG TAB PO SCH (02:00)
[2025-07-03 04:00] VITALS: BP 139/64
[2025-07-03 06:52] LABS: BUN 14 mg/dl (9-23); SGPT/ALT 13 U/L (5-49)
[2025-07-03 06:56] LABS: MEAN CELL VOLUME 92.9 fl (80.0-94.0); MEAN CORPUSCULAR HGB 30.7 pg (27.0-31.0); MEAN PLATELET VOLUME 9.8 fl (9.6-12.3); NUCLEATED RED BLOOD CELL 0.0 % (0.0-0.0); NUCLEATED RED BLOOD CELL 0.0 10*3/uL (0.0-0.0); PLATELET COUNT AUTOMATED 298 10*3/uL (130-400); RED CELL DISTRI WIDTH 15.2 % (0-14.5)
[2025-07-03 07:01] LABS: MANUAL DIFF REFLEX YES
[2025-07-03 07:28] LABS: PLATELET SUFFICIENCY NORMAL (NORMAL)
[2025-07-03 08:00] VITALS: BP 142/62
[2025-07-03 12:00] VITALS: BP 135/70
[2025-07-03] MEDS ORDERED: HEPARIN SODIUM 250 ML IV SCH (15:50)
[2025-07-03 16:00] VITALS: BP 127/64
[2025-07-03 16:31] LABS: ACT PARTIAL THROMBO TIME 20.8 SECONDS (20.0-32.1)
[2025-07-03 20:00] VITALS: BP 138/89
[2025-07-04] VITALS: BP 133/65
[2025-07-04 05:13] LABS: BUN 14 mg/dl (9-23); SGPT/ALT 16 U/L (5-49)
[2025-07-04 06:31] LABS: MEAN CELL VOLUME 93.9 fl (80.0-94.0); MEAN CORPUSCULAR HGB 31.0 pg (27.0-31.0); MEAN PLATELET VOLUME 9.9 fl (9.6-12.3); NUCLEATED RED BLOOD CELL 0.0 % (0.0-0.0); NUCLEATED RED BLOOD CELL 0.0 10*3/uL (0.0-0.0); PLATELET COUNT AUTOMATED 280 10*3/uL (130-400); RED CELL DISTRI WIDTH 15.1 % (0-14.5)
[2025-07-04 06:32] LABS: MANUAL DIFF REFLEX YES
[2025-07-04 07:03] LABS: PLATELET SUFFICIENCY NORMAL (NORMAL); VACUOLATION OF NEUTROPHILS SLIGHT
[2025-07-04 08:00] VITALS: BP 142/69
[2025-07-04 12:00] VITALS: BP 158/59
[2025-07-04 16:00] VITALS: BP 113/51
[2025-07-04 20:00] VITALS: BP 142/65
[2025-07-05] VITALS: BP 113/71
[2025-07-05 06:20] LABS: MANUAL DIFF REFLEX YES; MEAN CELL VOLUME 96.4 fl (80.0-94.0); MEAN CORPUSCULAR HGB 30.7 pg (27.0-31.0); MEAN PLATELET VOLUME 9.9 fl (9.6-12.3); NUCLEATED RED BLOOD CELL 0.0 % (0.0-0.0); NUCLEATED RED BLOOD CELL 0.0 10*3/uL (0.0-0.0); PLATELET COUNT AUTOMATED 275 10*3/uL (130-400); RED CELL DISTRI WIDTH 14.9 % (0-14.5)
[2025-07-05 06:54] LABS: PLATELET SUFFICIENCY NORMAL (NORMAL)
[2025-07-05 08:00] VITALS: BP 129/56
[2025-07-05] MEDS ORDERED: VIBRA-TAB100 MG PO (10:57)
[2025-07-05] MEDS ORDERED: MEDROL DOSEPAK4 MG PO (10:57)
[2025-07-05] MEDS ORDERED: METOPROLOL TART50 M1 PO (10:57)
[2025-07-05] MEDS ORDERED: ELIQUIS5 M1 PO (10:58)
[2025-07-05] MEDS ORDERED: APIXABAN 5 MG TAB PO ONE (11:15)
[2025-07-05] MEDS ORDERED: ELIQUIS5 M2 PO (11:39)
== END 2025-07-05 12:15 | disposition home or self-care (01) | DRG 720 ==
LOC: ED 14:08 → EDHOLD 17:27 → ICCU 17:27 → 5E 19:30 → ICCU 20:52
PROVIDERS: Emergency Medicine; Family Medicine; Student in an Organized Health Care Education/Training Program; ADMIT Internal Medicine; ATTEND Internal Medicine
DX: A41.9 Sepsis, unspecified organism (principal); K92.0 Hematemesis; E87.20 Acidosis, unspecified; I26.99 Other pulmonary embolism without acute cor pulmonale; J44.1 Chronic obstructive pulmonary disease with (acute) exacerbation; K92.2 Gastrointestinal hemorrhage, unspecified; E87.1 Hypo-osmolality and hyponatremia; I10 Essential (primary) hypertension; K21.9 Gastro-esophageal reflux disease without esophagitis; E87.8 Other disorders of electrolyte and fluid balance, not elsewhere classified; D64.9 Anemia, unspecified; E78.2 Mixed hyperlipidemia; R65.20 Severe sepsis without septic shock; F10.239 Alcohol dependence with withdrawal, unspecified; F17.210 Nicotine dependence, cigarettes, uncomplicated; Z79.899 Other long term (current) drug therapy; Z79.01 Long term (current) use of anticoagulants; Z79.2 Long term (current) use of antibiotics; Z79.82 Long term (current) use of aspirin; Z98.42 Cataract extraction status, left eye; Z80.8 Family history of malignant neoplasm of other organs or systems; Z82.0 Family history of epilepsy and other diseases of the nervous system; Y90.0 Blood alcohol level of less than 20 mg/100 ml

== ENCOUNTER 2025-08-03 18:06 | Inpatient (IN) | payer MEDICAID ==
[~2025-08-03] VITALS: Ht 165.1 cm; Wt 56.7 kg
[~2025-08-03 18:06] MED LIST changes: +ELIQUIS5 M1 PO; +ELIQUIS5 M2 PO; +MEDROL DOSEPAK4 MG PO; +METOPROLOL TART50 M1 PO; +VIBRA-TAB100 MG PO
[2025-08-03 18:07] VITALS: BP 147/88
[2025-08-03] MEDS ORDERED: SODIUM CHLORIDE 0.9% 1,000 ML IV ONE ×2 (18:30→22:35)
[2025-08-03 18:42] LABS: BASO # 0.1 10*3/uL (0.0-0.1); BASO % 1.9 % (0.0-1.0); EOS # 0.0 10*3/uL (0.0-0.4); EOS % 0.6 % (1.0-4.0); MEAN CELL VOLUME 92.6 fl (80.0-94.0); MEAN CORPUSCULAR HGB 30.4 pg (27.0-31.0); MEAN PLATELET VOLUME 8.2 fl (9.6-12.3); MONO # 0.3 10*3/uL (0.1-1.0); MONO % 10.7 % (3.0-9.0); NEUT # 1.8 10*3/uL (2.3-7.9); NEUT % 57.4 % (47.0-73.0); NUCLEATED RED BLOOD CELL 0.0 % (0.0-0.0); NUCLEATED RED BLOOD CELL 0.0 10*3/uL (0.0-0.0); PLATELET COUNT AUTOMATED 344 10*3/uL (130-400); RED CELL DISTRI WIDTH 15.7 % (0-14.5)
[2025-08-03 19:07] LABS: BUN 14 mg/dl (9-23); SGPT/ALT 14 U/L (5-49)
[2025-08-03] MEDS ORDERED: DEXTROSE 50% 25 GM/50 ML SYR IV ONE (19:35)
[2025-08-03 22:25] VITALS: BP 150/77
[2025-08-04] MEDS ORDERED: LORazepam 1 MG TAB PO ONE ×2 (01:05→02:20)
[2025-08-04] MEDS ORDERED: DEXTROSE 10 % IN WATER 250 ML DEHP.FR.BG IV ONE (02:25)
[2025-08-04 03:18] VITALS: BP 164/86
[2025-08-04] MEDS ORDERED: BISACODYL 5 MG TAB PO PRN (04:05)
[2025-08-04] MEDS ORDERED: ACETAMINOPHEN 650 MG SUPP R PRN (04:05)
[2025-08-04] MEDS ORDERED: ACETAMINOPHEN 325 MG TAB PO PRN (04:05)
[2025-08-04] MEDS ORDERED: BISACODYL 10 MG SUPP R PRN (04:05)
[2025-08-04] MEDS ORDERED: Ondansetron Hydrochloride 4 MG/2 ML VIAL IV PRN (04:05)
[2025-08-04] MEDS ORDERED: FOLIC ACID 1 MG TAB PO ONE (04:10)
[2025-08-04] MEDS ORDERED: MAGNESIUM SULFATE 100 ML IV ONE (04:10)
[2025-08-04] MEDS ORDERED: hydrOXYzine 50 MG CAP PO PRN (04:10)
[2025-08-04] MEDS ORDERED: Dicyclomine Hydrochloride 20 MG TAB PO PRN (04:10)
[2025-08-04] MEDS ORDERED: METHOCARBAMOL 750 MG TAB PO PRN (04:10)
[2025-08-04] MEDS ORDERED: diazePAM 10 MG/2 ML SYR IV PRN (04:15)
[2025-08-04] MEDS ORDERED: Albuterol Sulf/Ipratropium 3 ML VIAL NEB SCH (04:15)
[2025-08-04] MEDS ORDERED: IOHEXOL 350 MG/ML 100 ML VIAL IV ONE (04:55)
[2025-08-04] MEDS ORDERED: SODIUM CHLORIDE 0.9% 100 ML BAG IV ONE (04:55)
[2025-08-04 04:58] LABS: ACT PARTIAL THROMBO TIME 24.5 SECONDS (20.0-32.1)
[2025-08-04 05:19] LABS: BUN 9 mg/dl (9-23); FREE T4 1.18 ng/dl (0.89-1.76); SGPT/ALT 12 U/L (5-49)
[2025-08-04 06:00] VITALS: BP 147/83
[2025-08-04 06:15] LABS: BILIRUBIN Negative (Negative); BLOOD Negative (Negative); CLARITY Clear (Clear); COLOR Yellow (Yellow); KETONE 2+ (Negative); LEUKO ESTERASE Negative (Negative); NITRITE Negative (Negative); PH 6.0 (4.5-8.0); SPECIFIC GRAVITY 1.020 (1.001-1.030); UROBILINOGEN 1.0 E.U./dl (0.0-1.0)
[2025-08-04] MEDS ORDERED: OXYCODONE HCL 20 MG PO PRN (06:15)
[2025-08-04] MEDS ORDERED: SODIUM CHLORIDE 0.9% 1,000 ML IV ONE (06:15)
[2025-08-04 06:24] LABS: BASO # 0.1 10*3/uL (0.0-0.1); BASO % 1.5 % (0.0-1.0); EOS # 0.0 10*3/uL (0.0-0.4); EOS % 1.2 % (1.0-4.0); MEAN CELL VOLUME 91.0 fl (80.0-94.0); MEAN CORPUSCULAR HGB 30.2 pg (27.0-31.0); MEAN PLATELET VOLUME 8.8 fl (9.6-12.3); MONO # 0.6 10*3/uL (0.1-1.0); MONO % 17.2 % (3.0-9.0); NEUT # 1.9 10*3/uL (2.3-7.9); NEUT % 56.0 % (47.0-73.0); NUCLEATED RED BLOOD CELL 0.0 % (0.0-0.0); NUCLEATED RED BLOOD CELL 0.0 10*3/uL (0.0-0.0); PLATELET COUNT AUTOMATED 334 10*3/uL (130-400); RED CELL DISTRI WIDTH 15.4 % (0-14.5)
[2025-08-04 06:39] LABS: BACTERIA TRACE; EPITHELIAL CELLS 0-2; RBC 0-2 rbc/hpf (0-2); WBC 0-2 wbc/hpf (0-5)
[2025-08-04 06:47] LABS: URINE AMPHETAMINES Negative (1000ng/ml); URINE BARBITURATES Negative (200ng/ml); URINE BENZODIAZEPINES Negative (200ng/ml); URINE CANNABINOIDS (THC) Negative (50ng/ml); URINE COCAINE Negative (300ng/ml); URINE METHADONE Negative (300ng/ml); URINE OPIATES Negative (300ng/ml); URINE PHENCYCLIDINE Negative (25ng/ml)
[2025-08-04] MEDS ORDERED: LORazepam 1 MG TAB PO SCH (08:00)
[2025-08-04 08:03] LABS: VITAMIN D, 25-HYDROXY 24.7 ng/mL (30-100)
[2025-08-04 08:28] VITALS: BP 188/89
[2025-08-04] MEDS ORDERED: MULTIVITAMIN 1 TAB TAB PO SCH (10:00)
[2025-08-04] MEDS ORDERED: AZITHROMYCIN 250 ML IV SCH (10:00)
[2025-08-04] MEDS ORDERED: APIXABAN 5 MG TAB PO SCH (10:00)
[2025-08-04] MEDS ORDERED: LEVETIRACETAM 500 MG TAB PO SCH (10:00)
[2025-08-04] MEDS ORDERED: GUAIFENESIN 600 MG TAB ER PO SCH (10:00)
[2025-08-04 12:11] VITALS: BP 187/95
[2025-08-04 16:29] VITALS: BP 187/95
[2025-08-04] MEDS ORDERED: Albuterol Sulf/Ipratropium 3 ML VIAL NEB PRN (18:15)
[2025-08-04 20:00] VITALS: BP 157/98
[2025-08-04] MEDS ORDERED: OXYCODONE HCL (IR) 10 MG TABLET PO PRN (20:15)
[2025-08-05] VITALS: BP 155/85
[2025-08-05] MEDS ORDERED: LORazepam 1 MG TAB PO SCH
[2025-08-05 06:22] LABS: BUN 5 mg/dl (9-23)
[2025-08-05 07:26] LABS: MEAN CELL VOLUME 90.7 fl (80.0-94.0); MEAN CORPUSCULAR HGB 30.6 pg (27.0-31.0); MEAN PLATELET VOLUME 9.0 fl (9.6-12.3); NUCLEATED RED BLOOD CELL 0.0 % (0.0-0.0); NUCLEATED RED BLOOD CELL 0.0 10*3/uL (0.0-0.0); RED CELL DISTRI WIDTH 15.5 % (0-14.5)
[2025-08-05 07:30] LABS: MANUAL DIFF REFLEX YES
[2025-08-05 07:31] LABS: PLATELET COUNT AUTOMATED 252 10*3/uL (130-400)
[2025-08-05 07:38] LABS: PLATELET SUFFICIENCY NORMAL (NORMAL)
[2025-08-05 08:00] VITALS: BP 155/88
[2025-08-05 10:16] LABS: BILIRUBIN Negative (Negative); BLOOD Negative (Negative); CLARITY Clear (Clear); COLOR Yellow (Yellow); KETONE Negative (Negative); LEUKO ESTERASE Negative (Negative); NITRITE Negative (Negative); PH 7.0 (4.5-8.0); SPECIFIC GRAVITY 1.010 (1.001-1.030); UROBILINOGEN 0.2 E.U./dl (0.0-1.0)
[2025-08-05 10:53] LABS: BACTERIA TRACE
[2025-08-05 11:40] VITALS: BP 164/92
[2025-08-05 16:00] VITALS: BP 162/93
[2025-08-05] MEDS ORDERED: FOAM BANDAGE 5X5 T ONE (17:59)
[2025-08-05 20:00] VITALS: BP 170/90
[2025-08-06] VITALS: BP 162/88
[2025-08-06] MEDS ORDERED: LORazepam 1 MG TAB PO PRN
[2025-08-06 05:10] LABS: BUN < 5 mg/dl (9-23)
[2025-08-06 06:11] LABS: BASO # 0.0 10*3/uL (0.0-0.1); BASO % 0.4 % (0.0-1.0); EOS # 0.1 10*3/uL (0.0-0.4); EOS % 1.0 % (1.0-4.0); MEAN CELL VOLUME 92.7 fl (80.0-94.0); MEAN CORPUSCULAR HGB 30.6 pg (27.0-31.0); MEAN PLATELET VOLUME 9.1 fl (9.6-12.3); MONO # 0.5 10*3/uL (0.1-1.0); MONO % 7.0 % (3.0-9.0); NEUT # 5.7 10*3/uL (2.3-7.9); NEUT % 79.5 % (47.0-73.0); NUCLEATED RED BLOOD CELL 0.0 % (0.0-0.0); NUCLEATED RED BLOOD CELL 0.0 10*3/uL (0.0-0.0); PLATELET COUNT AUTOMATED 240 10*3/uL (130-400); RED CELL DISTRI WIDTH 15.7 % (0-14.5)
[2025-08-06 08:00] VITALS: BP 123/87
[2025-08-06 12:00] VITALS: BP 128/75
[2025-08-06 16:00] VITALS: BP 119/71
[2025-08-06 20:00] VITALS: BP 150/81
[2025-08-07] VITALS: BP 172/85
[2025-08-07 04:31] LABS: BASO # 0.0 10*3/uL (0.0-0.1); BASO % 0.1 % (0.0-1.0); EOS # 0.0 10*3/uL (0.0-0.4); EOS % 0.0 % (1.0-4.0); MEAN CELL VOLUME 94.1 fl (80.0-94.0); MEAN CORPUSCULAR HGB 30.3 pg (27.0-31.0); MEAN PLATELET VOLUME 9.6 fl (9.6-12.3); MONO # 0.3 10*3/uL (0.1-1.0); MONO % 3.5 % (3.0-9.0); NEUT # 6.9 10*3/uL (2.3-7.9); NEUT % 88.6 % (47.0-73.0); NUCLEATED RED BLOOD CELL 0.0 % (0.0-0.0); NUCLEATED RED BLOOD CELL 0.0 10*3/uL (0.0-0.0); PLATELET COUNT AUTOMATED 225 10*3/uL (130-400); RED CELL DISTRI WIDTH 15.3 % (0-14.5)
[2025-08-07 04:53] LABS: BUN 10 mg/dl (9-23)
[2025-08-07 08:00] VITALS: BP 159/83
[2025-08-07 12:00] VITALS: BP 135/75
[2025-08-07 16:00] VITALS: BP 146/75
[2025-08-07 20:00] VITALS: BP 158/76
[2025-08-08] VITALS: BP 146/82
[2025-08-08 05:58] LABS: BUN 15 mg/dl (9-23)
[2025-08-08 08:00] VITALS: BP 163/82
[2025-08-08] MEDS ORDERED: PREDNISONE10 MG PO (10:40)
[2025-08-08] MEDS ORDERED: TAB-A-VITE TA400 MCG PO (10:40)
[2025-08-08] MEDS ORDERED: LOPRESSOR25 MG PO (10:40)
[2025-08-08] MEDS ORDERED: OMNICEF300 MG PO (10:40)
== END 2025-08-08 11:20 | disposition home or self-care (01) | DRG 720 ==
LOC: ED 18:06 → 5E 08-04 03:24 → EDHOLD 08-04 03:24 → 5E 08-04 04:57
PROVIDERS: Nurse Practitioner Family; Student in an Organized Health Care Education/Training Program; ADMIT Family Medicine; ATTEND Family Medicine
DX: A41.9 Sepsis, unspecified organism (principal); J15.69 Pneumonia due to other Gram-negative bacteria; E87.20 Acidosis, unspecified; G90.9 Disorder of the autonomic nervous system, unspecified; E88.89 Other specified metabolic disorders; J44.1 Chronic obstructive pulmonary disease with (acute) exacerbation; F10.930 Alcohol use, unspecified with withdrawal, uncomplicated; D64.9 Anemia, unspecified; J44.9 Chronic obstructive pulmonary disease, unspecified; E78.2 Mixed hyperlipidemia; I10 Essential (primary) hypertension; K21.9 Gastro-esophageal reflux disease without esophagitis; E55.9 Vitamin D deficiency, unspecified; F10.929 Alcohol use, unspecified with intoxication, unspecified; E87.1 Hypo-osmolality and hyponatremia; E16.2 Hypoglycemia, unspecified; R56.9 Unspecified convulsions; M25.511 Pain in right shoulder; G89.29 Other chronic pain; F17.200 Nicotine dependence, unspecified, uncomplicated; R65.20 Severe sepsis without septic shock; Z86.711 Personal history of pulmonary embolism; Z98.42 Cataract extraction status, left eye; Z81.8 Family history of other mental and behavioral disorders; Z79.899 Other long term (current) drug therapy